=== PATIENT | male | born 1990 | race Two or more races ===

== ENCOUNTER → 2016-05-10 | Emergency (ER) | payer OTHER ==
[~2016-05-10] MED LIST: IOPAMIDOL (ISOVUE-300) 100 ML BTL IV ONE
[2016-05-10 04:18] VITALS: TEMP 98.1; O2SAT 95
--- NOTE | 2016-05-10 05:13 | EDPHY ---
H & P Stated Complaint: abd pain for year most recent [address] HPI/ROS: HPI CHIEF COMPLAINT: Abdominal pain HISTORY OF PRESENT ILLNESS: This patient very pleasant 25-year-old male, he presents emergency room at 5 o'clock in the morning with abdominal pain. He tells me he has had abdominal pain over the last 8-10 months very similar to this. He tells me that he has been seen at Urgent Care 5 times he was told that he needs to get an outpatient CT scan at some point. He was also referred to Gastroenterology which he tells me he has seen and tells me he has been diagnosed with gastritis, a GI viral illness. He also tells me has a follow- up appointment Gastroenterology at 9:00 a.m. this morning. States that he woke up this morning at 5 o'clock and decided come the emergency room to have a CT scan performed of his belly. He states last time he had an episode of vomiting was 2 days ago last time he had an episode of diarrhea was a week ago. He does not endorse bilious or bloody vomiting or diarrhea. Currently this time emergency room is complaining of very mild 1/10 lower abdominal pain. He has a normal appetite. No fever. No chest pain or shortness of breath Past Medical History: no significant medical history Past Surgical History: no significant surgical history Social History: [employer] student, denies daily use of drugs alcohol tobacco products Family History: noncontributory ROS REVIEW OF SYSTEMS: A comprehensive 10 point review of systems is otherwise negative aside from elements mentioned in the history of present illness. Exam Constitutional triage nursing summary reviewed, vital signs reviewed, awake/ alert. Eyes normal conjunctivae and sclera, EOMI, PERRLA. HENT normal inspection, atraumatic, moist mucus membranes, no epistaxis, neck supple/ no meningismus, no raccoon eyes. Respiratory clear to auscultation bilaterally, normal breath sounds, no respiratory distress, no wheezing. Cardiovascular rate normal, regular rhythm, no murmur, no edema, distal pulses normal. Gastrointestinal soft, non-tender, no rebound, no guarding, normal bowel sounds, no distension, no pulsatile mass. Genitourinary no CVA tenderness. Musculoskeletal no midline vertebral tenderness, full range of motion, no calf swelling, no tenderness of extremities, no meningismus, good pulses, neurovascularly intact. Skin pink, warm, & dry, no rash, skin atraumatic. Neurologic awake, alert and oriented x 3, AAOx3, moves all 4 extremities equally, motor intact, sensory intact, CN II-XII intact, normal cerebellar, normal vision, normal speech. Psychiatric normal mood/affect. Heme/Lymph/Immune no lymphadenopathy. Differential diagnosis includes but is not limited to and in no particular order : gastritis, esophagitis, colitis, anxiety Bowel obstruction, appendicitis, gallbladder disease, diverticulitis, colitis, enteritis, perforated viscus, gastritis, GERD, esophagitis, urinary tract infection, pyelonephritis, kidney stones Medical Decision Making: Plan for this patient for abdominal pain for close to 1 year and IV will be established, will check basic blood work, due to having lower abdominal pain this pain being worse recently and seen at Urgent Care multiple times referred out to have a CT scan will perform a CT scan and pelvis with IV contrast and will print off his blood work and CT scan and provide him if he goes home to follow up with Gastroenterology. Re-evaluation: CT scan of the Abdomen pelvis with IV contrast. The results of the study are no evidence of acute appendicitis, no evidence of acute inflammatory process in the lower abdomen The study was read by Dr. Her. I viewed the images myself on the PACS system. 0654: Re-evaluation at this time patient is resting comfortably no abdominal pain on exam. CT scan is unremarkable for acute inflammatory process. Blood work is reassuring is noted and mildly elevated lipase however he has no epigastric abdominal pain is not vomiting. He has a GI appointment at 9:00 a.m. this morning. I would like him to keep this appointment as he has been having lower abdominal pain for a year and he may need colonoscopy as CT scan and blood work is unrevealing. I went over this with him. Does understand if he has worsening abdominal pain, fever, vomiting he needs return to the emergency room. I have printed this patient's labs for him to take to his GI appointment today. I am unable to bring his CT scan result at this time it is not fluent formally dictated however this was an unremarkable CT scan without any acute inflammatory process. Source: Patient - Personal History Current Tetanus/Diphtheria Vaccine: Yes Current Tetanus Diphtheria and Acellular Pertussis (TDAP): Yes Tetanus Vaccine Date: < 10 YEARS - Medical/Surgical History Hx Asthma: Yes Hx Chronic Respiratory Disease: No Hx Diabetes: No Hx Cardiac Disease: No Hx Renal Disease: No Hx Cirrhosis: No Hx Alcoholism: No Hx HIV/AIDS: No Hx Splenectomy or Spleen Trauma: No Other PMH: denies - Social History Smoking Status: Current every day smoker Constitutional: Initial Vital Signs Temperature (C) 36.7 C 05/10/16 04:12 Heart Rate 81 05/10/16 04:12 Respiratory Rate 18 05/10/16 04:12 Blood Pressure 108/65 05/10/16 04:12 O2 Sat (%) 95 05/10/16 04:12 O2 Delivery Mode Room Air Allergies/Adverse Reactions: No Known Allergies Allergy (Unverified 12/22/14 15:55) Home Medications: Medication Instructions Recorded NK [No Known Home Meds] 05/05/15 Medical Decision Making - Data Points Laboratory Results: Laboratory Results 05/10/16 05:43 05/10/16 05:43 05/10/16 05/10/16 05/10/16 05:43 05:43 05:28 WBC 10.06 10^3/uL H 10^3/uL (3.80-9.50) RBC 4.86 10^6/uL 10^6/uL (4.40-6.38) Hgb 15.0 g/dL g/dL (13.7-17.5) POC Hgb 15.0 gm/dL gm/dL (14.5-17.3) Hct 43.5 % % (40.0-51.0) POC Hct 44 % % (42.8-50.6) MCV 89.5 fL fL (81.5-99.8) MCH 30.9 pg pg (27.9-34.1) MCHC 34.5 g/dL g/dL (32.4-36.7) RDW 12.2 % % (11.5-15.2) Plt Count 231 10^3/uL 10^3/uL (150-400) MPV 8.5 fL L fL (8.7-11.7) Neut % (Auto) 44.9 % % (39.3-74.2) Lymph % (Auto) 44.8 % % (15.0-45.0) Avery % (Auto) 8.0 % % (4.5-13.0) Eos % (Auto) 1.5 % % (0.6-7.6) Baso % (Auto) 0.4 % % (0.3-1.7) Nucleat RBC Rel Count 0.0 % % (0.0-0.2) Absolute Neuts (auto) 4.52 10^3/uL 10^3/uL (1.70-6.50) Absolute Lymphs (auto) 4.51 10^3/uL H 10^3/uL (1.00-3.00) Absolute Monos (auto) 0.80 10^3/uL 10^3/uL (0.30-0.80) Absolute Eos (auto) 0.15 10^3/uL 10^3/uL (0.03-0.40) Absolute Basos (auto) 0.04 10^3/uL 10^3/uL (0.02-0.10) Absolute Nucleated RBC 0.00 10^3/uL 10^3/uL (0-0.01) Immature Gran % 0.4 % % (0.0-1.1) Immature Gran # 0.04 10^3/uL 10^3/uL (0.00-0.10) POC Sodium 143 mEq/L mEq/L (134-144) Sodium 143 mEq/L mEq/L (134-144) POC Potassium 3.9 mEq/L mEq/L (3.3-5.0) Potassium 4.2 mEq/L mEq/L (3.5-5.2) POC Chloride 104 mEq/L mEq/L (96-108) Chloride 108 mEq/L mEq/L (97-110) Carbon Dioxide 25 mEq/l mEq/l (22-31) Anion Gap 10 mEq/L mEq/L (8-16) POC BUN 12 mg/dL mg/dL (7-23) BUN 12 mg/dL mg/dL (7-23) Creatinine 0.9 mg/dL mg/dL (0.7-1.3) POC Creatinine 1.0 mg/dL mg/dL (0.8-1.5) Estimated GFR > 60 Glucose 87 mg/dL mg/dL (70-100) POC Glucose 92 mg/dL mg/dL (70-100) Calcium 9.4 mg/dL mg/dL (8.5-10.4) Total Bilirubin 0.5 mg/dL mg/dL (0.1-1.4) AST 19 IU/L IU/L (17-59) ALT 25 IU/L IU/L (21-72) Alkaline Phosphatase 44 IU/L IU/L (38-126) Total Protein 6.6 g/dL g/dL (6.3-8.2) Albumin 4.2 g/dL g/dL (3.5-5.0) Lipase 467.0 IU/L H IU/L (23-300) Point of Care Test Results: 05/10/16 05:28 POC Sodium 143 POC Potassium 3.9 POC Chloride 104 POC BUN 12 POC Creatinine 1.0 POC Glucose 92 Departure - Departure Disposition: Home, Routine, Self-Care Clinical Impression: Abdominal pain Qualifiers: Abdominal location: unspecified location Qualified Code(s): R10.9 - Unspecified abdominal pain Condition: Good Instructions: Abdominal Pain (ED) Additional Instructions: 1. Please follow up with her bumboater today. 2. return emergency room if you have worsening symptoms worsening abdominal pain , fever, vomiting. Referrals: NONE *PRIMARY CARE P,. [Primary Care Provider] - As per Instructions
[2016-05-10 05:52] LABS: % IMMATURE GRANULYOCYTES 0.4 % (0.0-1.1); ABSOLUTE IMMATURE GRANULOCYTES 0.04 10^3/uL (0.00-0.10); ADD DIFF? NO; ADD MORPH? NO; ADD SCAN? NO; ATYPICAL LYMPHOCYTE FLAG 20 (0-99); FRAGMENT RBC FLAG 0 (0-99); HEMATOCRIT 43.5 % (40.0-51.0); LEFT SHIFT FLG 0 (0-99); LIPEMIA HEMOLYSIS FLAG 90 (0-99); MEAN CELL HEMOGLOBIN 30.9 pg (27.9-34.1); MEAN CELL HEMOGLOBIN CONCENTR. 34.5 g/dL (32.4-36.7); MEAN CELL VOLUME 89.5 fL (81.5-99.8); MEAN PLATELET VOLUME 8.5 fL (8.7-11.7); PLATELET CLUMPS FLAG 0 (0-99); PLATELET COUNT 231 10^3/uL (150-400); RED BLOOD CELL COUNT 4.86 10^6/uL (4.40-6.38); RED CELL DISTRIBUTION WIDTH 12.2 % (11.5-15.2)
[2016-05-10 06:17] LABS: ALANINE AMINOTRANSFERASE 25 IU/L (21-72); ALBUMIN 4.2 g/dL (3.5-5.0); ALKALINE PHOSPHATASE 44 IU/L (38-126); ANION GAP 10 mEq/L (8-16); ASPARTATE AMINOTRANSFERASE 19 IU/L (17-59); BILIRUBIN,TOTAL 0.5 mg/dL (0.1-1.4); CALCIUM 9.4 mg/dL (8.5-10.4); CARBON DIOXIDE 25 mEq/l (22-31); CHLORIDE 108 mEq/L (97-110); CREATININE 0.9 mg/dL (0.7-1.3); GLOMERULAR FILTRATION RATE > 60; GLUCOSE 87 mg/dL (70-100); POTASSIUM 4.2 mEq/L (3.5-5.2); SODIUM 143 mEq/L (134-144); TOTAL PROTEIN 6.6 g/dL (6.3-8.2)
[2016-05-10 07:12] VITALS: BP 115/66; PULSE 54; RESP 14
[2016-05-10 11:05] LABS: COLOR YELLOW; LEUKOCYTE ESTERASE,URINE NEGATIVE (NEGATIVE); NITRITE,URINE NEGATIVE (NEGATIVE)
== END | disposition home or self-care (01) ==
DX: R10.30 Lower abdominal pain, unspecified (principal); J45.909 Unspecified asthma, uncomplicated; F17.200 Nicotine dependence, unspecified, uncomplicated
CPT/HCPCS: 82947-QW; Q9967

== ENCOUNTER 2016-12-06 22:24 | Emergency (ER) | payer OTHER ==
[2016-12-06] MEDS ORDERED: NS 1,000 ML IV ONE ×2 (22:34→22:38)
[2016-12-06] MEDS ORDERED: ONDANSETRON 4 MG/2 ML VIAL IVP ONE (22:34)
--- NOTE | 2016-12-06 22:34 | EDPHY ---
H & P Stated Complaint: COLONOSCOPY AND ENDOSCOPY TODAY, VOMITING AND NAUSEA SINCE. HPI/ROS: HPI CHIEF COMPLAINT: Nausea, vomiting, anxiety, recent colonoscopy and endoscopy HISTORY OF PRESENT ILLNESS: This patient is a 26-year-old male, he presents emergency room with nausea vomiting. Patient reports to me that he had a colonoscopy and endoscopy today by Dr. Stoner. This was performed and he was discharged around 245 today. He has not had anything to eat in 2 days. He states since arriving home he has had ongoing nausea vomiting. May need clear secretions. No blood. He does complain of diffuse abdominal pain. Denies chest pain. Does endorse shortness of breath. Of note upon arrival here in emergency room appears extremely anxious. He is having ongoing nausea with dry heaving. Past Medical History: Chronic nausea vomiting and diarrhea Past Surgical History: No recent surgery Social History: Smokes marijuana regularly he has tells me smokes a lot of marijuana. Family History: Noncontributory ROS REVIEW OF SYSTEMS: A comprehensive 10 point review of systems is otherwise negative aside from elements mentioned in the history of present illness. Exam Constitutional appears nontoxic, triage nursing summary reviewed, vital signs reviewed, awake/alert. Eyes normal conjunctivae and sclera, EOMI, PERRLA. HENT normal inspection, atraumatic, moist mucus membranes, no epistaxis, neck supple/ no meningismus, no raccoon eyes. Respiratory clear to auscultation bilaterally, normal breath sounds, no respiratory distress, no wheezing. Cardiovascular rate normal, regular rhythm, no murmur, no edema, distal pulses normal. Gastrointestinal soft, non-tender, no rebound, no guarding, normal bowel sounds, no distension, no pulsatile mass. Genitourinary no CVA tenderness. Musculoskeletal no midline vertebral tenderness, full range of motion, no calf swelling, no tenderness of extremities, no meningismus, good pulses, neurovascularly intact. Skin pink, warm, & dry, no rash, skin atraumatic. Neurologic awake, alert and oriented x 3, AAOx3, moves all 4 extremities equally, motor intact, sensory intact, CN II-XII intact, normal cerebellar, normal vision, normal speech. Psychiatric normal mood/affect. Heme/Lymph/Immune no lymphadenopathy. Differential diagnosis includes but is not limited to and in no particular order : Bowel obstruction, appendicitis, gallbladder disease, diverticulitis, colitis , enteritis, perforated viscus, gastritis, GERD, esophagitis, urinary tract infection, pyelonephritis, kidney stones Medical Decision Making: Re-evaluation: Plan for this patient IV establishment, IV fluid bolus 2 L normal saline, IV Haldol 2.5 mg for nausea vomiting. 0201AM: On re-examination patient resting comfortably. Feels much better. P.o. challenge well without vomiting. Lactic acid trended down with IV fluids. Lactic acid was elevated due to dehydration and vomiting. Electrolytes are appropriate. On re-examination of his abdomen is soft nontender there is no guarding or peritoneal signs. He feels comfortable going home. Return precautions given. Understands return emergency room if develops worsening abdominal pain fever vomiting. Source: Patient - Personal History Current Tetanus/Diphtheria Vaccine: Yes Tetanus Vaccine Date: < 10 YEARS - Medical/Surgical History Hx Asthma: Yes Hx Chronic Respiratory Disease: No Hx Diabetes: No Hx Cardiac Disease: No Hx Renal Disease: No Hx Cirrhosis: No Hx Alcoholism: No Hx HIV/AIDS: No Hx Splenectomy or Spleen Trauma: No Other PMH: denies - Social History Smoking Status: Current every day smoker Constitutional: Initial Vital Signs Temperature (C) 36.3 C 12/06/16 22:27 Heart Rate 77 12/06/16 22:27 Respiratory Rate 30 H 12/06/16 22:27 Blood Pressure 122/70 H 12/06/16 22:27 O2 Sat (%) 97 12/06/16 22:27 O2 Delivery Mode Room Air Allergies/Adverse Reactions: No Known Allergies Allergy (Unverified 12/06/16 22:27) Home Medications: Medication Instructions Recorded NK [No Known Home Meds] 05/05/15 Medical Decision Making - Diagnostics Imaging Results: Imaging Impressions Chest X-Ray 12/06/16 22:41 Impression: Stable negative portable chest. - Data Points Laboratory Results: Laboratory Results 12/06/16 22:45 12/06/16 22:45 12/07/16 12/07/16 12/06/16 00:38 00:30 22:54 WBC RBC Hgb Hct MCV MCH MCHC RDW Plt Count MPV Neut % (Auto) Lymph % (Auto) Larue % (Auto) Eos % (Auto) Baso % (Auto) Nucleat RBC Rel Count Absolute Neuts (auto) Absolute Lymphs (auto) Absolute Monos (auto) Absolute Eos (auto) Absolute Basos (auto) Absolute Nucleated RBC Immature Gran % Immature Gran # PT INR APTT VBG Lactic Acid 1.3 mmol/L D mmol/L 3.9 mmol/L H mmol/L (0.7-2.1) (0.7-2.1) Sodium Potassium Chloride Carbon Dioxide Anion Gap BUN Creatinine Estimated GFR Glucose Calcium Total Bilirubin Conjugated Bilirubin Unconjugated Bilirubin AST ALT Alkaline Phosphatase Total Protein Albumin Lipase Urine Color PALE YELLOW Urine Appearance CLEAR Urine pH 5.0 (5.0-7.5) Ur Specific [place] 1.012 (1.002-1.030) Urine Protein NEGATIVE (NEGATIVE) Urine Ketones 2+ H (NEGATIVE) Urine Blood 1+ H (NEGATIVE) Urine Nitrate NEGATIVE (NEGATIVE) Urine Bilirubin NEGATIVE (NEGATIVE) Urine Urobilinogen NEGATIVE EU EU (0.2-1.0) Ur Leukocyte Esterase NEGATIVE (NEGATIVE) Urine RBC 5-10 /hpf H /hpf (0-3) Urine WBC 1-3 /hpf /hpf (0-3) Ur Epithelial Cells TRACE /lpf /lpf (NONE-1+) Urine Mucus TRACE /lpf /lpf (NONE-1+) Urine Glucose NEGATIVE (NEGATIVE) 12/06/16 12/06/16 12/06/16 22:45 22:45 22:45 WBC 14.37 10^3/uL H 10^3/uL (3.80-9.50) RBC 5.27 10^6/uL 10^6/uL (4.40-6.38) Hgb 16.2 g/dL g/dL (13.7-17.5) Hct 45.3 % % (40.0-51.0) MCV 86.0 fL fL (81.5-99.8) MCH 30.7 pg pg (27.9-34.1) MCHC 35.8 g/dL g/dL (32.4-36.7) RDW 11.9 % % (11.5-15.2) Plt Count 232 10^3/uL 10^3/uL (150-400) MPV 8.2 fL L fL (8.7-11.7) Neut % (Auto) 74.7 % H % (39.3-74.2) Lymph % (Auto) 18.7 % % (15.0-45.0) Larue % (Auto) 5.5 % % (4.5-13.0) Eos % (Auto) 0.3 % L % (0.6-7.6) Baso % (Auto) 0.3 % % (0.3-1.7) Nucleat RBC Rel Count 0.0 % % (0.0-0.2) Absolute Neuts (auto) 10.72 10^3/uL H 10^3/uL (1.70-6.50) Absolute Lymphs (auto) 2.69 10^3/uL 10^3/uL (1.00-3.00) Absolute Monos (auto) 0.79 10^3/uL 10^3/uL (0.30-0.80) Absolute Eos (auto) 0.05 10^3/uL 10^3/uL (0.03-0.40) Absolute Basos (auto) 0.05 10^3/uL 10^3/uL (0.02-0.10) Absolute Nucleated RBC 0.00 10^3/uL 10^3/uL (0-0.01) Immature Gran % 0.5 % % (0.0-1.1) Immature Gran # 0.07 10^3/uL 10^3/uL (0.00-0.10) PT 12.9 SEC SEC (12.0-15.0) INR 0.98 (0.83-1.16) APTT 28.9 SEC SEC (23.0-38.0) VBG Lactic Acid Sodium 140 mEq/L mEq/L (134-144) Potassium 3.8 mEq/L mEq/L (3.5-5.2) Chloride 104 mEq/L mEq/L (97-110) Carbon Dioxide 17 mEq/l L mEq/l (22-31) Anion Gap 19 mEq/L H mEq/L (8-16) BUN 11 mg/dL mg/dL (7-23) Creatinine 1.1 mg/dL mg/dL (0.7-1.3) Estimated GFR > 60 Glucose 120 mg/dL H mg/dL (70-100) Calcium 9.8 mg/dL mg/dL (8.5-10.4) Total Bilirubin 1.0 mg/dL mg/dL (0.1-1.4) Conjugated Bilirubin 0.4 mg/dL mg/dL (0.0-0.5) Unconjugated Bilirubin 0.6 mg/dL mg/dL (0.0-1.1) AST 22 IU/L IU/L (17-59) ALT 29 IU/L IU/L (21-72) Alkaline Phosphatase 66 IU/L IU/L (38-126) Total Protein 7.2 g/dL g/dL (6.3-8.2) Albumin 4.6 g/dL g/dL (3.5-5.0) Lipase 115 IU/L IU/L (23-300) Urine Color Urine Appearance Urine pH Ur Specific [place] Urine Protein Urine Ketones Urine Blood Urine Nitrate Urine Bilirubin Urine Urobilinogen Ur Leukocyte Esterase Urine RBC Urine WBC Ur Epithelial Cells Urine Mucus Urine Glucose Medications Given: Discontinued Medications Haloperidol Lactate (Haldol Injection) 2.5 mg IVP EDNOW ONE Stop: 12/06/16 22:39 Last Admin: 12/06/16 22:53 Dose: 2.5 mg Sodium Chloride (Ns) 1,000 mls @ 0 mls/hr IV EDNOW ONE; Wide Open PRN Reason: Protocol Stop: 12/06/16 22:35 Last Admin: 12/06/16 22:52 Dose: 1,000 mls Sodium Chloride (Ns) 1,000 mls @ 0 mls/hr IV ONCE ONE PRN Reason: Wide Open Stop: 12/06/16 22:39 Last Admin: 12/06/16 22:52 Dose: 1,000 mls Ondansetron HCl (Zofran) 4 mg IVP EDNOW ONE Stop: 12/06/16 22:35 Last Admin: 12/06/16 23:02 Dose: Not Given Departure - Departure Disposition: Home, Routine, Self-Care Clinical Impression: Vomiting Qualifiers: Vomiting type: unspecified Vomiting Intractability: intractable Nausea presence : with nausea Qualified Code(s): R11.2 - Nausea with vomiting, unspecified Condition: Good Instructions: Acute Nausea and Vomiting (ED) Additional Instructions: 1. Gentry diet next 24-48 hours. 2. Do not smoke marijuana. 3. Return emergency room if develops worsening abdominal pain fever vomiting. Referrals: NONE *PRIMARY CARE P,. [Primary Care Provider] - As per Instructions
[2016-12-06] MEDS ORDERED: HALOPERIDOL LACT 5 MG/ML INJ IVP ONE (22:38)
[2016-12-06 22:51] LABS: % IMMATURE GRANULYOCYTES 0.5 % (0.0-1.1); ABSOLUTE IMMATURE GRANULOCYTES 0.07 10^3/uL (0.00-0.10); ADD DIFF? NO; ADD MORPH? NO; ADD SCAN? NO; ATYPICAL LYMPHOCYTE FLAG 0 (0-99); FRAGMENT RBC FLAG 0 (0-99); HEMATOCRIT 45.3 % (40.0-51.0); HEMOGLOBIN 16.2 g/dL (13.7-17.5); LEFT SHIFT FLG 0 (0-99); LIPEMIA HEMOLYSIS FLAG 90 (0-99); MEAN CELL HEMOGLOBIN 30.7 pg (27.9-34.1); MEAN CELL HEMOGLOBIN CONCENTR. 35.8 g/dL (32.4-36.7); MEAN PLATELET VOLUME 8.2 fL (8.7-11.7); PLATELET CLUMPS FLAG 10 (0-99); PLATELET COUNT 232 10^3/uL (150-400); RED BLOOD CELL COUNT 5.27 10^6/uL (4.40-6.38); RED CELL DISTRIBUTION WIDTH 11.9 % (11.5-15.2)
[2016-12-06 23:08] LABS: ALANINE AMINOTRANSFERASE 29 IU/L (21-72); ALBUMIN 4.6 g/dL (3.5-5.0); ALKALINE PHOSPHATASE 66 IU/L (38-126); ANION GAP 19 mEq/L (8-16); ASPARTATE AMINOTRANSFERASE 22 IU/L (17-59); BILIRUBIN-CONJUGATED 0.4 mg/dL (0.0-0.5); BILIRUBIN-UNCONJUGATED 0.6 mg/dL (0.0-1.1); CALCIUM 9.8 mg/dL (8.5-10.4); CARBON DIOXIDE 17 mEq/l (22-31); CHLORIDE 104 mEq/L (97-110); CREATININE 1.1 mg/dL (0.7-1.3); GLOMERULAR FILTRATION RATE > 60; GLUCOSE 120 mg/dL (70-100); POTASSIUM 3.8 mEq/L (3.5-5.2); SODIUM 140 mEq/L (134-144); TOTAL PROTEIN 7.2 g/dL (6.3-8.2)
[2016-12-06 23:11] LABS: INR 0.98 (0.83-1.16); PROTIME(PATIENT) 12.9 SEC (12.0-15.0)
[2016-12-06 23:12] LABS: APTT 28.9 SEC (23.0-38.0)
[2016-12-07 01:02] LABS: COLOR PALE YELLOW; LEUKOCYTE ESTERASE,URINE NEGATIVE (NEGATIVE); NITRITE,URINE NEGATIVE (NEGATIVE)
[2016-12-07 01:08] LABS: MUCUS TRACE /lpf (NONE-1+)
[2016-12-07 02:24] VITALS: BP 94/64; PULSE 82; RESP 18; TEMP 97.7; O2SAT 94
== END 2016-12-07 02:22 | disposition home or self-care (01) ==
DX: R11.2 Nausea with vomiting, unspecified (principal); E86.9 Volume depletion, unspecified; F17.200 Nicotine dependence, unspecified, uncomplicated; J45.909 Unspecified asthma, uncomplicated; R10.84 Generalized abdominal pain
CPT/HCPCS: 96374